=== PATIENT | male | born 1975 | race Caucasian/White ===

== ENCOUNTER 2019-04-15 13:24 | Emergency (ER) | payer BC ==
[2019-04-15 13:45] VITALS: BP 165/112
--- NOTE | 2019-04-15 15:14 | UC ---
Upper Extremity HPI - HPI Summary HPI Summary: 43-year-old male with a chief complaint of right elbow pain. This started 6 days ago. He quite often has some pain in his elbow but after coming home from work the pain continued to get worse. When he woke up 5 days ago he had a hard time with range of motion of the elbow. He has decreased range of motion with flexion extension of the elbow and also supination. No weakness or numbness. - History of Current Complaint Chief Complaint: UCUpperExtremity Stated Complaint: rt ellow pain Time Seen by Provider: 04/15/19 14:38 Pain Intensity: 6 - Allergies/Home Medications Allergies/Adverse Reactions: Allergies Allergy/AdvReac Type Severity Reaction Status Date / Time diphenhydramine Allergy Nausea Verified 04/15/19 13:41 [From Benadryl] PMH/Surg Hx/FS Hx/Imm Hx Previously Healthy: Yes - Surgical History Surgical History: Yes Surgery Procedure, Year, and Place: Tonsillectomy - Social History Alcohol Use: Weekly Alcohol Amount: weekends Substance Use Type: None Smoking Status (MU): Never Smoked Tobacco Review of Systems All Other Systems Reviewed And Are Negative: Yes Constitutional: Positive: Negative Skin: Positive: Negative Eyes: Positive: Negative ENT: Positive: Negative Respiratory: Positive: Negative Cardiovascular: Positive: Negative Gastrointestinal: Positive: Negative Motor: Positive: Decreased ROM Neurovascular: Positive: Negative Musculoskeletal: Positive: Other: - SEE HPI Neurological: Positive: Negative Psychological: Positive: Negative Is Patient Immunocompromised?: No Physical Exam Triage Information Reviewed: Yes Appearance: Well-Appearing, No Pain Distress, Well-Nourished Vital Signs: Initial Vital Signs Temp 98.9 F 04/15/19 13:36 Pulse 98 04/15/19 13:36 Resp 18 04/15/19 13:36 BP 165/112 04/15/19 13:36 Pulse Ox 97 04/15/19 13:36 Vital Signs Reviewed: Yes Eye Exam: Normal Eyes: Positive: Conjunctiva Clear Neck: Positive: Supple Respiratory: Positive: No respiratory distress Musculoskeletal: Positive: Other: - rIGHT ELBOW right elbow is tender to palpation it has an effusion. He holds it approximate 90 flexion. He cannot flex it completely and it's limited extension and supination. Normal radial pulses normal capillary refill no sensation deficits. Neurological Exam: Normal Neurological: Positive: Alert, Muscle Tone Normal Psychological Exam: Normal Psychological: Positive: Age Appropriate Behavior Skin Exam: Normal Upper Extremity Course/Dx - Course Course Of Treatment: Patient Name: AGUEDA KNOX JR Medical Record#: [id number] Ordering Physician: Moo Hutchins MD Acct.#: [id number] : 1975 Age: 43 Sex: M Location: [facility] Exam Date: 04/15/19 1412 ADM Status: REG ER Order Information: ELBOW RIGHT 3+ VWS Accession Number: [id number] CPT: 83469 INDICATION: Pain; over use injury. Swelling. Decreased range of motion. COMPARISON: No relevant prior exams available on the [facility] PACS for comparison. TECHNIQUE: AP, lateral, and oblique views RIGHT elbow. REPORT AND IMPRESSION: #. Negative for fracture or malalignment. #. Osteoarthritis: Mild osteophytosis at the humeral ulnar and proximal radioulnar articulations. Displaced anterior and posterior fat pads consistent with joint effusion. Suggestion of a punctate 1.5 mm intra-articular loose body at the confluence of the humerus, ulna, and radius. #. Soft tissue swelling over the medial epicondyle. <Electronically signed by Robles Thomas MD in [place]> 04/15/19 7916 I discussed the x-rays with the patient. There appears to be a intrarticular calcification that may be causing his problems. At this time is ibuprofen and ice and the follow-up with either sports medicine or orthopedics. - Differential Dx/Diagnosis Provider Diagnosis: Effusion, right elbow Discharge - Sign-Out/Discharge Documenting (check all that apply): Patient Departure All imaging exams completed and their final reports reviewed: Yes - Discharge Plan Condition: Stable Disposition: HOME Patient Education Materials: Elbow Sprain (ED), Swollen Joint (ED) Forms: *Work Release Referrals: [facility] [Provider Group] Taty Latif MD [Medical Doctor] - Additional Instructions: FOLLOW UP WITH SPORTS MEDICINE OR ORTHOPEDICS. GET RECHECKED SOONER IF YOUR CONDITION WORSENS OR ANY QUESTIONS OR CONCERNS. - Billing Disposition and Condition Condition: STABLE Disposition: Home
== END 2019-04-15 15:25 | disposition home or self-care (01) ==
LOC: UCEAST 13:24
DX: M25.421 Effusion, right elbow (principal)
CPT/HCPCS: 99211; G0463